=== PATIENT | female | born 1990 | race Caucasian/White ===

== ENCOUNTER 2018-02-14 23:44 | Emergency (ER) | payer OTHER, SELFPAY ==
[2018-02-14 23:44] VITALS: BMI 18.7
[2018-02-15] MEDS ORDERED: Sodium Chloride 0.9% 1,000 ML IV STA (00:23)
--- NOTE | 2018-02-15 00:47 | ED PDOC ---
HPI: Abdomen Time Seen by Provider: 02/14/18 23:59 Chief Complaint (Nursing): Abdominal Pain Chief Complaint (Provider): Abdominal Pain History Per: Patient, Lab Support Technician ([id number]) History/Exam Limitations: no limitations Location Of Pain/Discomfort: LLQ Associated Symptoms: Diarrhea. denies: Fever, Vomiting Additional Complaint(s): 28 year old female presents to the ED complaining of having intermittent LLQ abdominal pain for the past 5 years. Patient states over the past 2 weeks, pain is progressively worsening. She states she was seen in the [facility] on and had bloodwork done. She was prescribed amoxicillin, clarithromycin, famotidine, and omeprazole and since taking the medications, she developed diarrhea. Patient denies fever, melena, hematochezia, vomiting, previous abdominal surgeries, or dysuria. PMD: [facility] Past Medical History Reviewed: Historical Data, Nursing Documentation, Vital Signs Vital Signs: Last Vital Signs Temp 98.1 F 02/14/18 23:50 Pulse 98 H 02/14/18 23:50 Resp 17 02/14/18 23:50 BP 132/76 02/14/18 23:50 Pulse Ox 98 02/14/18 23:50 - Medical History PMH: No Chronic Diseases - Surgical History Surgical History: No Surg Hx - Family History Family History: States: Unknown Family Hx - Home Medications Home Medications: Ambulatory Orders Medication Instructions Recorded Ibuprofen [Motrin] 600 mg PO Q6H PRN #20 tab 07/04/15 Dicyclomine [Bentyl] 20 mg PO TID PRN #10 tab 02/15/18 - Allergies Allergies/Adverse Reactions: Allergies Allergy/AdvReac Type Severity Reaction Status Date / Time No Known Allergies Allergy Verified 07/04/15 09:16 Review of Systems ROS Statement: Except As Marked, All Systems Reviewed And Found Negative Constitutional: Negative for: Fever Gastrointestinal: Positive for: Abdominal Pain (LLQ), Diarrhea. Negative for: Vomiting, Melena, Hematochezia Genitourinary Female: Negative for: Dysuria Physical Exam - Reviewed Nursing Documentation Reviewed: Yes Vital Signs Reviewed: Yes - Physical Exam Appears: Positive for: In Acute Distress (Moderate painful distress) Head Exam: Positive for: ATRAUMATIC, NORMOCEPHALIC Skin: Positive for: Normal Color, Warm, Dry Eye Exam: Positive for: Normal appearance, EOMI, PERRL Neck: Positive for: Normal, Painless ROM Cardiovascular/Chest: Positive for: Regular Rate, Rhythm Respiratory: Positive for: Normal Breath Sounds. Negative for: Wheezing, Respiratory Distress Gastrointestinal/Abdominal: Positive for: Tenderness (Moderate LLQ pain) Back: Positive for: Normal Inspection. Negative for: L CVA Tenderness, R CVA Tenderness Extremity: Positive for: Normal ROM Neurologic/Psych: Positive for: Alert, Oriented. Negative for: Motor/Sensory Deficits - Laboratory Results Result Diagrams: 02/15/18 01:16 02/15/18 01:16 - ECG O2 Sat by Pulse Oximetry: 98 (RA) Pulse Ox Interpretation: Normal Medical Decision Making Medical Decision Making: Initial Plan: --CT abd/pelvis --CMP --Lipase stat --ED urine --CBC --Morphine 2mg IV --Sodium chloride 1000mL IV --Zofran 4mg IV --Urinalysis 0310 CT abd/pelvis: no evidence of acute abdominal or pelvic abnormality. interpreter translator [id number] On re-evaluation, pt. reports relief of pain. Alert and awake. Informed of results. Advised to f/u with Dr. Echols for further evaluation but is to return to ED immediately if symptoms worsen. Scribe Attestation: Documented by Noble Talavera acting as a scribe for Mo SAENZ Provider Scribe Attestation: All medical record entries made by the Scribe were at my direction and personally dictated by me. I have reviewed the chart and agree that the record accurately reflects my personal performance of the history, physical exam, medical decision making, and the department course for this patient. I have also personally directed, reviewed, and agree with the discharge instructions and disposition. Disposition - Clinical Impression Clinical Impression: Abdominal pain - Patient ED Disposition Is Patient to be Admitted: No - Disposition Referrals: Rakan Echols MD [Staff Provider] - [facility] [Outside] Disposition: Routine/Home Disposition Time: 03:07 Condition: IMPROVED Additional Instructions: FOLLOW UP WITH DR. ECHOLS FOR FURTHER EVALUATION RETURN TO ED IMMEDIATELY IF SYMPTOMS WORSEN. KIMBERLY CHEN, thank you for letting us take care of you today. Your provider was Blade Monique MD and you were treated for ABD PAIN. The emergency medical care you received today was directed at your acute symptoms. If you were prescribed any medication, please fill it and take as directed. It may take several days for your symptoms to resolve. Return to the Emergency Department if your symptoms worsen, do not improve, or if you have any other problems. Please contact your doctor or call one of the physicians/clinics you have been referred to that are listed on the Patient Visit Information form that is included in your discharge packet. Bring any paperwork you were given at discharge with you along with any medications you are taking to your follow up visit. Our treatment cannot replace ongoing medical care by a primary care provider outside of the emergency department. Thank you for allowing the [facility] team to be part of your care today. If you had an X-Ray or CT scan: A Radiologist will review the ED reading if any change in treatment is needed we will contact you. If you had a blood, urine, or wound culture: It will take several days for the results, if any change in treatment is needed we will contact you. If you had an STI test: It will take 48 hours for the results. Please call after 1 week if you have not heard back. Prescriptions: Dicyclomine [Bentyl] 20 mg PO TID PRN #10 tab PRN Reason: abdominal pain Instructions: Stomach Ache and Stomach Upset Forms: [employer] ([place]) Print Language: CHINESE
[2018-02-15 01:28] LABS: BASO % 0.5 % (0.0-2.0); EOS % 0.5 % (0.0-4.0); HEMOGLOBIN 15.2 g/dL (12.0-16.0); LYMPH # 1.6 K/uL (1.0-4.3); LYMPH % 19.1 % (20.0-40.0); MEAN CELL VOLUME 92.6 fl (81.0-99.0); MEAN CORPUSCULAR HEMOGLOBIN 30.5 pg (27.0-31.0); MEAN PLATELET VOLUME 9.2 fl (7.2-11.7); MONO # 0.5 K/uL (0.0-0.8); MONO % 5.9 % (0.0-10.0); NEUT # 6.1 K/uL (1.8-7.0); NRBC % 0.2 % (0.0-0.0); RBC 4.97 Mil/uL (3.80-5.20); RED CELL DISTRIBUTION WIDTH 12.9 % (11.5-14.5); WHITE BLOOD COUNT 8.3 K/uL (4.8-10.8)
[2018-02-15 01:32] LABS: ALB/GLOB RATIO 1.3 (1.0-2.1); ALBUMIN 4.3 g/dL (3.5-5.0); ALT/SGPT 23 U/L (9-52); AST/SGOT 22 U/L (14-36); BLOOD UREA NITROGEN 13 mg/dl (7-17); GFR NON-AFRICAN AMERICAN > 60; LIPASE 114 U/L (23-300)
[2018-02-15 01:37] LABS: SQUAMOUS EPITHIAL 1 /hpf (0-5); URINE BILIRUBIN NEGATIVE (NEGATIVE); URINE BLOOD LARGE (NEGATIVE); URINE CLARITY SLIGHTY-CLOUDY (Clear); URINE COLOR STRAW (YELLOW); URINE GLUCOSE (UA) NEG (NEGATIVE); URINE LEUKOCYTE ESTERASE NEG Leu/uL (Negative); URINE PROTEIN NEGATIVE (NEGATIVE); URINE UROBILINOGEN 0.2-1.0 mg/dL (0.2-1.0)
[2018-02-15] MEDS ORDERED: Sodium Chloride 0.9% 50 ML IV ONE (02:10)
[2018-02-15] MEDS ORDERED: Iohexol 300 100 ML IJ ONE (02:10)
[2018-02-15 04:16] VITALS: BP 126/72; PULSE 91; RESP 18; TEMP 98.3; O2SAT 99
--- NOTE | 2018-02-15 10:09 | CT ---
Date of service: 02/15/2018 PROCEDURE: CT Abdomen and Pelvis with and without intravenous contrast HISTORY: LLQ abd pain COMPARISON: None. TECHNIQUE: Axial images of the abdomen were obtained in the pre contrast, portal venous and delayed phases of enhancement. Coronal and sagittal reformats were generated. Contrast dose: Radiation dose: Total exam DLP = 182.45 mGy-cm. This CT exam was performed using one or more of the following dose reduction techniques: Automated exposure control, adjustment of the mA and/or kV according to patient size, and/or use of iterative reconstruction technique. FINDINGS: LOWER THORAX: Unremarkable. LIVER: Unremarkable. No gross lesion or ductal dilatation. GALLBLADDER AND BILE DUCTS: Unremarkable. PANCREAS: Unremarkable. No gross lesion or ductal dilatation. SPLEEN: Unremarkable. ADRENALS: Unremarkable. No mass. KIDNEYS AND URETERS: Unremarkable. No hydronephrosis. No solid mass. VASCULATURE: Unremarkable. No aortic aneurysm. No aortic atherosclerotic calcification or mural plaque present. BOWEL: Unremarkable. No obstruction. No gross mural thickening. APPENDIX: Normal appendix. PERITONEUM: Unremarkable. No free fluid. No free air. LYMPH NODES: Unremarkable. No enlarged lymph nodes. BLADDER: Unremarkable. REPRODUCTIVE: Unremarkable. BONES: No acute fracture. OTHER FINDINGS: None. IMPRESSION: Unremarkable pre and post contrast enhanced CT of the abdomen and pelvis.
== END 2018-02-15 03:25 | disposition home or self-care (01) ==
LOC: H.ER 23:44
DX: R10.32 Left lower quadrant pain (principal)
CPT/HCPCS: 74177; 80053; 81003; 81025; 83690; 85025; 96374; 96375; 99284; J2270; J2405; J7030; Q9967